=== PATIENT | female | born 1995 | race Caucasian/White ===

== ENCOUNTER 2017-01-16 17:28 | Emergency (ER) | payer SELFPAY ==
--- NOTE | 2017-01-22 15:06 | ER ---
ADMIT: 01/16/2017 RM/LOC: ER [facility] MR#: [id number] [address] [id number] ALEJANDRA GRIJALVA [address] [place] [id number] Emergency Room Report SEX: F AGE: 21 : 1995 DATE: 01/16/2017 TIME: 1728 Please refer to my T-sheet for complete H and P. HISTORY OF PRESENT ILLNESS: Briefly, the patient is a 21-year-old who comes in with cough, it has been there for 2 days. Her daughter has also been sick. She is bringing up phlegm. She is a smoker, smokes a pack a day. PHYSICAL EXAMINATION: VITAL SIGNS: Her blood pressure 136/67, pulse 117, respirations 18, temp 100, saturating 99%. GENERAL: No acute distress. HEENT: She has copious amounts of rhinorrhea. Throat clear. NECK: Soft, supple. No meningismus. LUNGS: Coarse with trace wheeze. HEART: Regular. ABDOMEN: Soft. SKIN: No rash. EMERGENCY DEPARTMENT COURSE: She was given albuterol 2 puffs p.o. with teaching, ready for discharge. 1. Viral syndrome. 2. Cough. 3. Nicotine abuse. PLAN: Stop smoking. Fluids, Vicks and honey [id number]. Return if worse. Albuterol q.4 hours and follow up with [facility]. Francisco Richardson MD/ destinee JOB #: [id number] CC: Mauricio Zaragoza MD, Attending Physician Aby Shane MD, Family Physician
== END 2017-01-16 19:15 | disposition home or self-care (01) ==
LOC: ER 17:28
DX: B34.9 Viral infection, unspecified (principal); F17.210 Nicotine dependence, cigarettes, uncomplicated